=== PATIENT | female | born 1955 | race Hispanic/Latino ===

== ENCOUNTER 2022-04-12 08:14 | Day surgery (SDC) | payer OTHER ==
[2022-04-07 12:43] LABS: Protime INR 1.03
--- NOTE | 2022-04-07 13:01 | RAD REPORT ---
EXAM DESCRIPTION: RAD - Chest Pa And Lat (2 Views) - 04/07/2022 12:51 pm CLINICAL HISTORY: pre op right ureteroscopy stent exchange Chest pain. COMPARISON: No comparisons TECHNIQUE: PA and lateral views of the chest were obtained. FINDINGS: The lungs are hyperexpanded compatible with COPD. The heart is upper limit of normal in si ze. Postsurgical hardware lower thoracic spine. IMPRESSION: COPD without acute process identified. The USPSTF recommends annual screening for lung cancer with low-dose CT (LDCT) in adults aged 50 to 8 0 years who have a 20 pack-year smoking history and currently smoke or have quit within the past 15 y ears.
[~2022-04-12 08:14] MED LIST: Gentamicin Inj 160 MG in NA CHLORIDE 0.9% 100 ML IV SCH
[2022-04-12 08:53] LABS: Specific Gravity 1.008 (1.005-1.030); Urine Bacteria None Seen /HPF (<20); Urine Bilirubin NEGATIVE (Negative); Urine Blood 3+ (OVER) (Negative); Urine Clarity Turbid (Clear); Urine Color Light-Orange (Yellow); Urine Glucose NEGATIVE (Negative); Urine Protein 1+ (Negative); Urine RBC >50 /HPF (None Seen); Urine Urobilinogen Normal (Normal); Urine WBC Clump Occasional /HPF (None Seen); Urine pH 7.5 (5.0-7.0)
[2022-04-12] MEDS ORDERED: Ringers Lactate 1,000 ML IV ONE (09:29)
[2022-04-12] MEDS ORDERED: propofoL 200 MG/20 ML VIAL IV ONE (11:28)
[2022-04-12] MEDS ORDERED: MIDAZOLAM HCL 2 MG/2 ML INJ ONE (11:29)
[2022-04-12] MEDS ORDERED: FENTANYL CITR 100 MCG/2 ML ONE (11:29)
[2022-04-12] MEDS ORDERED: ONDANSETRON 4 MG/2 ML VIAL ONE (11:29)
[2022-04-12] MEDS ORDERED: LIDOCAINE 1% MPF 5 ML VIAL ONE (11:29)
[2022-04-12] MEDS: AMPICILLIN SODIUM 2 GM/VIAL VIAL ONE ×2 (12:25→12:35)
[2022-04-12] MEDS ORDERED: KETOROLAC 30 MG/ML INJ ONE (12:45)
--- NOTE | 2022-04-12 13:23 | RAD REPORT ---
EXAM DESCRIPTION: RAD - Urethrocystogrphy Retrograde - 04/12/2022 1:12 pm CLINICAL HISTORY: RIGHT STENT COMPARISON: No comparisons FINDINGS: Total fluoro time: 12 seconds
[2022-04-12 13:26] VITALS: O2SAT 95
[2022-04-12] MEDS ORDERED: PHENAZOPYRIDINE 100MG TAB PO ONE ×2 (13:37→14:16)
[2022-04-12] MEDS ORDERED: HYDROCODONE/APAP 5/325 MG TAB PO PRN (13:37)
[2022-04-12] MEDS ORDERED: HYDROCODONE/APAP 5/325 MG TAB ONE (14:16)
--- NOTE | 2022-04-12 14:44 | OP ---
Surgeon: LELIA MEJÍA Preoperative Diagnoses: 1.Bilateral nephrolithiasis, right 1 cm. 2.Right proximal ureterolithiasis, approximately 0.6 cm. Postoperative Diagnoses: 1.Bilateral nephrolithiasis, right 1 cm. 2.Right proximal ureterolithiasis, approximately 0.6 cm. Principal Procedures: 1.Cystoscopy with right retrograde pyelography. 2.Right ureteroscopy with pyeloscopy and laser lithotripsy. 3.Right ureteral stent exchange. Indication For Procedure: Ms. Young presented to the Urology Clinic having been seen and stente d at [facility] for an obstructing proximal ureteral calculus on the right. S he had a double-J stent placed, and she presents today for definitive management. I said earlier vilma t she was treated at [facility], but I believe her initial stent placement was in the medical center. Procedure In Detail: The patient was consented in the preoperative holding area before being transfe rred to the operative suite where general anesthesia was induced. She was given ampicillin 2 g and g entamicin 2-3 mg/kg IV antimicrobial prophylaxis and pneumo boots were provided for DVT prophylaxis. She was placed in the lithotomy position, padded, and secured to the table appropriately. Her genit isidro were prepped with Hibiclens and she was draped in standard fashion. The case was begun using a 22-Chadian rigid cystoscope to traverse the urethra into the bladder with ease. The bladder was decom pressed of fluid and urine, and the urine that drained was not significantly cloudy despite the prese nce of suspected UTI on her preoperative culture. She was started on Bactrim yesterday. The stent w as noted emanating from the right ureteral orifice and was somewhat encrusted. I was able to grab th e coil of the stent and deliver the tip via the meatus. The proximal end of the stent remained in th e proximal ureter as observed fluoroscopically. I was able to pass a Sensor wire up the stent and co il it within the putative collecting system. Over the Sensor wire, I removed the stent and replaced it with a dual-lumen catheter into the distal ureter. A retrograde pyelogram was then performed via the second lumen of the dual-lumen catheter. Right retrograde pyelography: Using a 70:30 mixture of Omnipaque and saline, contrast was injected and it did propagate up the dist al into the mid and proximal ureter before entering the renal pelvis. The wire was appropriately coi led within the renal pelvis, so I removed the dual-lumen catheter after placing a [employer] guidewire v ia the second lumen of the dual-lumen catheter coiling alongside the Sensor wire in the renal pelvis and mid and upper pole calyces. I then passed the flexible ureteroscope over the Bentson guidewire a nd passed it successfully into the proximal ureter where did encounter the point of obstruction. The re, the 6 mm ureteral calculus observed on the CT was still present. As a result, I utilized a 200 n m laser fiber, had a power setting of 0.8 joules and 8 hertz to begin to fragment that stone. The st one then did pass into the collecting system into one of the mid lower pole calices where I traced it and then continued to fragment the calculus into dust smaller than 1 mm in size. After fragmenting the calculus, I then surveyed each and every one of the other calices using fluoroscopic guidance. W ithin the lower pole posterior calyx, the 1 cm calculus observed on CT was found. I thus begin to fr agment the calculus in that location using a laser at power setting of 0.8 joules and 15 hertz. I wa s able to deliver the stone out of the calyx using the laser power and into a mid upper pole calyx wh ere I continued to fragment it until the dust was smaller than the size of the laser fiber. I then s urveyed each of the calyces again of the kidney and the renal pelvis and seeing no additional calculi , I surveyed down through the proximal into the mid and distal ureter before removing the ureteroscop e. I then back-loaded the cystoscope over the indwelling safety wire, decompressed her bladder while passing a 6-Chadian x 24 cm double-J right ureteral stent. A coil was observed fluoroscopically in t he renal pelvis and 1 cystoscopically was formed in her bladder. Her bladder was decompressed of flu id and urine, and she was taken out of the lithotomy position. She was then awakened from general an esthesia, transferred to a stretcher, and then transferred to the recovery room in good condition. Complications: None. Discharge Disposition: She will be discharged to continue the antimicrobial therapy provided, and florencia may follow up in the Urology Clinic within the next 3-4 weeks for cystoscopy and right ureteral tino nt extraction. Given her propensity for recurrent UTIs, I recommend 1 week prior to cystoscopy and s tent extraction, she leave a urine sample at the urology clinic for culture to avoid further delay in cystoscopy and stent extraction in clinic. WING/PAVITHRA Voice ID: [id number] Report ID: [id number]
[2022-04-12 14:52] VITALS: BP 102/55; TEMP 97.6
--- NOTE | 2022-04-12 17:34 | EKG ---
Test Date: 2022-04-07 Test Time: 12:10:03 Wireworker Supervisor: HOSEA MEASUREMENT RESULTS: Intervals: Rate: 61 SC: 164 QRSD: 76 QT: 450 QTc: 453 Carson: P: 64 SC: 164 QRS: 69 T: 65 INTERPRETIVE STATEMENTS: Normal sinus rhythm Normal ECG No previous ECG available for comparison Electronically Signed On 04-12-22 17:20:22 [employer] by Sea Neal
== END 2022-04-12 14:34 | disposition home or self-care (01) ==
LOC: OR 08:14
PROVIDERS: ATTEND Urology
PROC: 0T768DZ Dilation of Right Ureter with Intraluminal Device, Via Natural or Artificial Opening Endoscopic (ICD-10-PCS; 2022-04-12)
PROC: 0TF68ZZ Fragmentation in Right Ureter, Via Natural or Artificial Opening Endoscopic (ICD-10-PCS; principal; 2022-04-12 09:30)
DX: N20.2 Calculus of kidney with calculus of ureter (principal)
CPT/HCPCS: 93005; 87088 ×2; 81001; 87086 ×2; 36415; 85610; 87077; 87186; 71046; 74450; 51610; 52356; J2704; J2001; J1580; J2250; J3010; J7120; J2405; J0290